=== PATIENT | male | born 1985 | race African-American/Black ===

== ENCOUNTER 2019-12-24 14:53 | Day surgery (SDC) | payer OTHER ==
[~2019-12-24] VITALS: Ht 193 cm; Wt 104.0 kg
[2019-12-24] MEDS ORDERED: [UNRECOGNIZED DRUG - OTHER] PO (15:13)
[2019-12-24] MEDS ORDERED: ACET325T14 PO (15:13)
[2019-12-24 15:17] VITALS: BP 142/76
[2019-12-24] MEDS ORDERED: LACTATED RINGERS 1,000 ML IV SCH (15:30)
[2019-12-24] MEDS ORDERED: CHLORHEXIDINE 15 ML UDC MM ONE (15:30)
[2019-12-24] MEDS ORDERED: CHLORHEXIDINE 15 ML UDC ONE (15:42)
[2019-12-24] MEDS ORDERED: EPINEPHRINE 1 MG/ML, 1ML ONE (15:58)
[2019-12-24] MEDS ORDERED: BUPIVACAINE/PF 0.5% ONE (15:58)
[2019-12-24] MEDS ORDERED: MIDAZOLAM 1 MG/ML, 2ML ONE (17:27)
[2019-12-24] MEDS ORDERED: CEFAZOLIN 1,000 MG ONE (17:28)
[2019-12-24] MEDS ORDERED: NEOSTIGMINE 1 MG/ML, 10ML ONE (17:28)
[2019-12-24] MEDS ORDERED: FENTANYL PF 250 MCG/5ML ONE (17:28)
[2019-12-24] MEDS ORDERED: GLYCOPYRROLATE 0.2MG/1ML, 5ML ONE (17:28)
[2019-12-24] MEDS ORDERED: ROCURONIUM 10MG/ML,5ML ONE (17:28)
[2019-12-24] MEDS ORDERED: PROPOFOL 10 MG/ML, 20ML ONE (17:28)
[2019-12-24] MEDS ORDERED: ONDANSETRON 2MG/ML, 2ML IVPush PRN (18:00)
[2019-12-24] MEDS ORDERED: morphine SULFATE 10 MG/ML, 1ML IVPush PRN (18:00)
[2019-12-24] MEDS ORDERED: FENTANYL PF 100 MCG/2ML IV PRN (18:00)
[2019-12-24] MEDS ORDERED: OXYcodone 5 MG/5 ML ORAL.SOL UDC PO PRN (18:00)
[2019-12-24] MEDS ORDERED: ACETAMINOPHEN 325 MG TABLET PO PRN (18:00)
[2019-12-24] MEDS ORDERED: MEPERIDINE/PF 25MG/0.5ML IVPush PRN (18:00)
[2019-12-24] MEDS ORDERED: HYDROmorphone 1 MG/ML, 1ML INJ IVPush PRN (18:00)
[2019-12-24] MEDS ORDERED: LABETALOL 5MG/ML, 20ML IV PRN (18:00)
[2019-12-24] MEDS ORDERED: hydrALAzine 20 MG/ML, 1ML IV PRN (18:00)
[2019-12-24] MEDS ORDERED: SUGAMMADEX 200 MG/2 ML IVPush ONE ×2 (18:55)
[2019-12-24] MEDS ORDERED: BUPIVACAINE/PF-EPI 0.5% 1:200K INFIL ONE (19:03)
[2019-12-24] MEDS ORDERED: ACETAMINOPHEN 650 MG/20.3 ML UDC ONE (19:48)
== END 2019-12-24 22:14 | disposition home or self-care (01) ==
LOC: OR 14:53 → 4NE 20:28 → OR 22:14
PROVIDERS: ATTEND Orthopaedic Surgery
DX: S86.011A Strain of right Achilles tendon, initial encounter (principal); Z20.828 Contact with and (suspected) exposure to other viral communicable diseases; Z79.899 Other long term (current) drug therapy; Z87.891 Personal history of nicotine dependence; X50.1XXA Overexertion from prolonged static or awkward postures, initial encounter; Y93.61 Activity, american tackle football; Y92.89 Other specified places as the place of occurrence of the external cause; Y99.8 Other external cause status
CPT/HCPCS: 27650; 87635; C1713; J0171; J0690; J2250; J2704; J2710; J3010; J7120; G0378